=== PATIENT | female | born 1990 ===

== ENCOUNTER 2017-10-17 14:52 | Emergency (ER) | payer BC ==
[2017-10-17 15:21] VITALS: BP 134/79
--- NOTE | 2017-10-17 18:17 | Emergency Department Report ---
- General Chief complaint: Skin/Abscess/Foreign Body Stated complaint: ABCESS Time Seen by Provider: 10/17/17 17:32 Source: patient Mode of arrival: Ambulatory Limitations: No Limitations - History of Present Illness Initial comments: 26-year-old female past medical history recurrent abscesses presents with complaint of one week of developing abscess to left buttock region. Patient is awake alert and oriented 3 fully lucid nonacute distress. States it is difficult to sit down fully. Patient denies nausea or vomiting. Denies difficulty defecating. Patient states she has had several abscesses in this area and has been drained several times in the past. Patient accompanied by at bedside MD complaint: abscess/boil Onset/Timin -: week(s) Location: buttocks (left buttock) Severity: moderate Severity scale (0 -10): 7 Quality: stabbing, aching, sharp Consistency: constant Worsens with: palpation Context: none Associated symptoms: denies other symptoms - Related Data Previous Rx's Medication Instructions Recorded Last Taken Type Acetaminophen/Codeine [Tylenol 1 tab PO Q6H PRN #10 tab 10/17/17 Unknown Rx /Codeine # 3 tab] Ibuprofen [Motrin] 800 mg PO Q8HR PRN #25 tablet 10/17/17 Unknown Rx Sulfamethoxazole/Trimethoprim 1 each PO BID #14 tablet 10/17/17 Unknown Rx [Bactrim DS TAB] Allergies Allergy/AdvReac Type Severity Reaction Status Date / Time fragrence Allergy Hives Uncoded 10/17/17 15:17 Abscess Boil [facility] - HPI Chief Complaint: Skin/Abscess/Foreign Body Stated Complaint: ABCESS Time Seen by Provider: 10/17/17 17:32 Home Medications: Previous Rx's Medication Instructions Recorded Last Taken Type Acetaminophen/Codeine [Tylenol 1 tab PO Q6H PRN #10 tab 10/17/17 Unknown Rx /Codeine # 3 tab] Ibuprofen [Motrin] 800 mg PO Q8HR PRN #25 tablet 10/17/17 Unknown Rx Sulfamethoxazole/Trimethoprim 1 each PO BID #14 tablet 10/17/17 Unknown Rx [Bactrim DS TAB] Allergies/Adverse Reactions: Allergies Allergy/AdvReac Type Severity Reaction Status Date / Time fragrence Allergy Hives Uncoded 10/17/17 15:17 ED Review of Systems ROS: Stated complaint: ABCESS Other details as noted in HPI Constitutional: denies: chills, fever Eyes: denies: eye pain, eye discharge, vision change ENT: denies: ear pain, throat pain Respiratory: denies: cough, shortness of breath, wheezing Cardiovascular: denies: chest pain, palpitations Endocrine: no symptoms reported Gastrointestinal: denies: abdominal pain, nausea, diarrhea Genitourinary: denies: urgency, dysuria, discharge Musculoskeletal: denies: back pain, joint swelling, arthralgia Skin: as per HPI (hx of recurrent pilonidal abscesses). denies: rash, lesions Neurological: denies: headache, weakness, paresthesias Psychiatric: denies: anxiety, depression Hematological/Lymphatic: denies: easy bleeding, easy bruising ED Past Medical Hx - Past Medical History Previous Medical History?: No - Surgical History Past Surgical History?: No - Social History Smoking Status: Never Smoker Substance Use Type: None - Medications Home Medications: Home Medications Medication Instructions Recorded Confirmed Last Taken Type Acetaminophen/Codeine [Tylenol 1 tab PO Q6H PRN #10 tab 10/17/17 Unknown Rx /Codeine # 3 tab] Ibuprofen [Motrin] 800 mg PO Q8HR PRN #25 tablet 10/17/17 Unknown Rx Sulfamethoxazole/Trimethoprim 1 each PO BID #14 tablet 10/17/17 Unknown Rx [Bactrim DS TAB] ED Physical Exam - General Limitations: No Limitations General appearance: alert, in no apparent distress - Head Head exam: Present: atraumatic, normocephalic - Eye Eye exam: Present: normal appearance - ENT ENT exam: Present: mucous membranes moist - Neck Neck exam: Present: normal inspection - Respiratory Respiratory exam: Present: normal lung sounds bilaterally. Absent: respiratory distress - Cardiovascular Cardiovascular Exam: Present: regular rate, normal rhythm. Absent: systolic murmur, diastolic murmur, rubs, gallop - GI/Abdominal GI/Abdominal exam: Present: soft, normal bowel sounds - Rectal Rectal exam: Present: normal inspection - Extremities Exam Extremities exam: Present: normal inspection - Back Exam Back exam: Present: normal inspection - Neurological Exam Neurological exam: Present: alert, oriented X3, CN II-XII intact, normal gait - Psychiatric Psychiatric exam: Present: normal affect, normal mood - Skin Skin exam: Present: warm, dry, intact, normal color. Absent: rash - Expanded Skin Exam Expanded Type of lesion: Present: abscess Distribution of rash: other (left lower buttock) Description of rash: Present: size (approximately 5-6 cm), tenderness, erythematous, swelling, fluctuant, indurated 1 - Abscess left inner buttocks [facility] in [facility] ED Course Vital Signs 10/17/17 15:17 Temperature 98.8 F Pulse Rate 99 H Respiratory 16 Rate Blood Pressure 134/79 O2 Sat by Pulse 99 Oximetry - I & D Left Buttocks Type of Procedure: Simple Site: left inner buttock region in critical [facility] Blade Size: 11 I & D Procedure: betadine prep, gauze wick placed Progress: Area infiltrated with lidocaine without epinephrine. Good local anesthesia achieved. Single stab incision made on central portion of abscess. Significant amount of purulent drainage with manual decompression achieved. Approximately 5 inches of quarter-inch iodoform gauze packed into the wound afterward after manual decompression. I drained at least 10 mL of purulent fluid out of this wound. Wound culture sent. Covered with gauze afterward. ED Medical Decision Making - Medical Decision Making A/P: Pilonidal abscess, incision and drainage 1-wound cultures sent, 2-course of Bactrim twice a day 7 days 3-significant decompression of abscess chief. Packed with iodoform gauze. I advised patient to return to the ED in 24-48 hours for wound packing removal and abscess recheck. I advised patient that she should have gauze removed within this timeframe 4- Motrin when necessary, short course Tylenol 3 when necessary 5- no involvement of anus on clinical exam Critical care attestation.: If time is entered above; I have spent that time in minutes in the direct care of this critically ill patient, excluding procedure time. ED Disposition Clinical Impression: Pilonidal abscess Disposition: TO HOME OR SELFCARE Is pt being admited?: No Does the pt Need Aspirin: No Condition: Stable Instructions: Abscess (ED), Abscess Incision and Drainage (ED), Cellulitis (ED) Additional Instructions: Pt advised to have packing removed in 24-48 hours Prescriptions: Acetaminophen/Codeine [Tylenol /Codeine # 3 tab] 1 tab PO Q6H PRN #10 tab PRN Reason: Pain , Severe (7-10) Ibuprofen [Motrin] 800 mg PO Q8HR PRN #25 tablet PRN Reason: Pain , Severe (7-10) Sulfamethoxazole/Trimethoprim [Bactrim DS TAB] 1 each PO BID #14 tablet Referrals: [facility] [Provider Group] - 3-5 Days Forms: Accompanied Note, Work/School Release Form(ED) Time of Disposition: 19:59
[2017-10-17] MEDS ORDERED: MOTRIN PO ONE (19:55)
[2017-10-17] MEDS ORDERED: BACTRIM DS PO ONE (19:55)
== END 2017-10-17 20:10 | disposition home or self-care (01) ==
LOC: ED 14:52
DX: L05.01 Pilonidal cyst with abscess (principal); Z88.9 Allergy status to unspecified drugs, medicaments and biological substances
CPT/HCPCS: 87116